=== PATIENT | male | born 1975 | race Caucasian/White ===

== ENCOUNTER 2022-04-02 00:45 | Emergency (ER) | payer MEDICAID ==
[~2022-04-02] VITALS: Ht 193 cm; Wt 145.4 kg
[2022-04-02 00:56] VITALS: BP 140/91
== END 2022-04-02 05:51 ==
LOC: ER 00:48
DX: Z02.89 Encounter for other administrative examinations (principal)
CPT/HCPCS: 99283

== ENCOUNTER 2023-01-11 16:17 | Emergency (ER) | payer MEDICAID ==
[~2023-01-11] VITALS: Ht 193 cm; Wt 127.4 kg
[2023-01-11 17:11] LABS: BILIRUBIN,URINE NEGATIVE (Neg); CLARITY,URINE SLIGHTLY CLOUDY (Clear); COLOR,URINE YELLOW (Yellow); GLUCOSE, URINE NEGATIVE (Neg); KETONES,URINE NEGATIVE (Neg); LEUKOCYTE ESTERASE ,URINE NEGATIVE (Neg); NITRITES, URINE NEGATIVE (Neg); OCCULT BLOOD,URINE NEGATIVE (Neg); PH,URINE 6.5 (4.8-8.0); PROTEIN,URINE TRACE mg/dl (Neg)
[2023-01-11 17:19] LABS: MUCUS STRANDS FEW /LPF (Neg); SQUAMOUS EPITHELIAL CELL,UR NONE SEEN /LPF (FEW); UA COLLECTION TYPE CLN CATCH MIDSTREAM
[2023-01-11 17:20] LABS: BACTERIA,URINE NONE SEEN /HPF (Neg); RBC,URINE 0-2 /HPF (0-2); SPERM MODERATE /HPF (NEGATIVE); WBC,URINE 0-4 /HPF (0-4)
[2023-01-11] MEDS ORDERED: FLO0.4C PO (17:25)
[2023-01-11] MEDS ORDERED: ibuprofen 200mg tablet PO ONE (17:55)
[2023-01-11] MEDS ORDERED: tamsulosin 0.4mg capsule PO ONE (17:55)
[2023-01-11] MEDS ORDERED: tamsulosin 0.4mg capsule PO SCH (17:55)
[2023-01-11 18:11] VITALS: BP 144/90; PULSE 84; TEMP 98.6; O2SAT 97
[2023-01-11 18:14] VITALS: RESP 16
--- NOTE | 2023-01-11 19:03 | NUR ---
I AGREE WITH THE ASSESSMENT OF Sonja HOWARD LVN.
== END 2023-01-11 18:16 | disposition home or self-care (01) ==
LOC: ER 16:18
DX: R30.9 Painful micturition, unspecified (principal); Z76.0 Encounter for issue of repeat prescription
CPT/HCPCS: 81001; 99283; A6449

== ENCOUNTER 2023-05-31 21:17 | Emergency (ER) | payer MEDICAID, OTHER ==
[~2023-05-31] VITALS: Ht 193 cm; Wt 150.0 kg
[2023-05-31 21:34] VITALS: TEMP 98.9
[2023-05-31] MEDS: morphine 4 MG/ML inj SYRINge IV ONE (21:40)
[2023-05-31] MEDS: normal saline 1000ml 1,000 ML IV ONE ×2 (21:43→21:53)
[2023-05-31] MEDS: ondansetron/PF 4mg/2ml inj IV ONE (21:48)
[2023-05-31] MEDS: ketorolac tromethamine 15mg/ml inj. IV ONE (21:52)
[2023-05-31] MEDS: HYDROmorphone 1 mg/ml syringe IV ONE (21:53)
[2023-05-31] MEDS: acetaminophen 1,000mg/100ml IV 100 ML IV SCH (22:19)
[2023-05-31 23:42] VITALS: BP 125/76; PULSE 102; O2SAT 92
[2023-06-01 00:41] LABS: MEAN CORPUSCULAR VOLUME 90.9 FL (78-98)
[2023-06-01 00:43] LABS: BASOPHILS # (AUTO) 0.1 X10'3 (0-0.2); BASOPHILS % (AUTO) 0.6 % (0-1); EOSINOPHILS # (AUTO) 0.1 X10'3 (0-0.9); EOSINOPHILS % (AUTO) 1.4 % (0-6); HEMATOCRIT 42.6 % (42.0-52.0); HEMOGLOBIN 14.6 g/dl (14.0-17.9); LYMPHOCYTES # (AUTO) 1.7 X10'3 (1.1-4.8); MEAN CORPUSCULAR HEMOGLOBIN 31.2 PG (27.0-31.0); MEAN CORPUSCULAR HGB CONC 34.3 g/dL (33.0-36.5); MEAN PLATELET VOLUME 7.5 FL (7.4-10.4); MONOCYTES # (AUTO) 0.5 X10'3 (0-0.9); MONOCYTES % (AUTO) 5.9 % (2-12); NEUTROPHILS # (AUTO) 6.2 X10'3 (1.8-7.7); NEUTROPHILS % (AUTO) 72.1 % (42-75); PLATELET COUNT 189 X10'3 (140-440); RED BLOOD COUNT 4.69 X10'6 (4.70-6.10); RED CELL DISTRIBUTION WIDTH 14.2 % (11.5-14.5); WHITE BLOOD COUNT 8.6 X10'3 (4.5-11.0)
[2023-06-01 00:52] LABS: BILIRUBIN,URINE NEGATIVE (Neg); CLARITY,URINE CLEAR (Clear); GLUCOSE, URINE NEGATIVE (Neg); KETONES,URINE NEGATIVE (Neg); LEUKOCYTE ESTERASE ,URINE NEGATIVE (Neg); NITRITES, URINE NEGATIVE (Neg); OCCULT BLOOD,URINE NEGATIVE (Neg); PH,URINE 5.5 (4.8-8.0); PROTEIN,URINE NEGATIVE (Neg); UROBILINOGEN,URINE 0.2 E.U/dL (0.2-1.0)
[2023-06-01 00:53] LABS: UA COLLECTION TYPE URINAL
[2023-06-01 00:54] VITALS: RESP 16
[2023-06-01 00:54] LABS: COLOR,URINE DARK YELLOW (Yellow)
[2023-06-01 01:01] LABS: ALANINE AMINOTRANSFERASE 34 U/L (12-78); ALBUMIN 3.4 G/DL (3.4-5.0); ALBUMIN/GLOBULIN RATIO 0.9 (1.1-1.5); ALKALINE PHOSPHATASE 79 IU/L (46-116); ANION GAP 8 (8-16); ASPARTATE AMINO TRANSFERASE 25 U/L (10-37); BILIRUBIN,TOTAL 0.7 MG/DL (0.1-1.0); BLOOD UREA NITROGEN 13 MG/DL (7-18); BUN/CREATININE RATIO 13.1 (10.0-20.0); CALCIUM 7.9 MG/DL (8.5-10.1); CHLORIDE 109 MMOL/L (99-107); CREATININE 0.99 MG/DL (0.60-1.10); GLUCOSE 118 MG/DL (70-104); LIPASE 32 U/L (16-77); POTASSIUM 3.7 MMOL/L (3.5-5.1); SODIUM 142 MMOL/L (135-145); TOTAL CARBON DIOXIDE 25.5 MMOL/L (24-32); TOTAL PROTEIN 7.1 G/DL (6.4-8.2); eCRCL 114 ML/MIN; eGFR 81 ML/MIN
== END 2023-06-01 01:44 | disposition home or self-care (01) ==
LOC: ER 21:18
DX: N20.0 Calculus of kidney (principal); Z88.8 Allergy status to other drugs, medicaments and biological substances
CPT/HCPCS: 36415; 74176; 80053; 81003; 83690; 85025; 96361; 96374; 96375; 99285; J1885; J2405; J7030

== ENCOUNTER 2023-12-26 21:54 | Emergency (ER) | payer MEDICAID ==
[~2023-12-26] VITALS: Ht 193 cm; Wt 131.1 kg
[2023-12-26 22:28] VITALS: BP 119/53; PULSE 106; RESP 24; TEMP 99.3; O2SAT 99
[2023-12-26 22:58] LABS: BASOPHILS # (AUTO) 0.1 X10'3 (0-0.2); EOSINOPHILS % (AUTO) 0 % (0-6); LYMPHOCYTES # (AUTO) 0.7 X10'3 (1.1-4.8); LYMPHOCYTES % (AUTO) 4.2 % (21-51); MEAN PLATELET VOLUME 7.5 FL (7.4-10.4); MONOCYTES # (AUTO) 0.7 X10'3 (0-0.9)
[2023-12-26 23:00] LABS: BASOPHILS % (AUTO) 0.3 % (0-1); HEMATOCRIT 45.4 % (42.0-52.0); MEAN CORPUSCULAR HEMOGLOBIN 32.4 PG (27.0-31.0); MEAN CORPUSCULAR HGB CONC 35.3 g/dL (33.0-36.5); MEAN CORPUSCULAR VOLUME 91.9 FL (78-98); MONOCYTES % (AUTO) 4.1 % (2-12); NEUTROPHILS # (AUTO) 15.2 X10'3 (1.8-7.7); NEUTROPHILS % (AUTO) 91.4 % (42-75); PLATELET COUNT 258 X10'3 (140-440); RED BLOOD COUNT 4.94 X10'6 (4.70-6.10); RED CELL DISTRIBUTION WIDTH 14.9 % (11.5-14.5); WHITE BLOOD COUNT 16.6 X10'3 (4.5-11.0)
[2023-12-26 23:10] LABS: APTT 27 SECONDS (22-32); D-DIMER 3.31 MG/L FEU (0-0.50); INR 1.1 INR
[2023-12-26 23:11] LABS: ALANINE AMINOTRANSFERASE 33 U/L (12-78); ALBUMIN 3.5 G/DL (3.4-5.0); ALBUMIN/GLOBULIN RATIO 0.9 (1.1-1.5); ALKALINE PHOSPHATASE 82 IU/L (46-116); ANION GAP 7 (8-16); ASPARTATE AMINO TRANSFERASE 35 U/L (10-37); BILIRUBIN,TOTAL 1.2 MG/DL (0.1-1.0); BLOOD UREA NITROGEN 16 MG/DL (7-18); BUN/CREATININE RATIO 9.4 (10.0-20.0); CALCIUM 8.4 MG/DL (8.5-10.1); CHLORIDE 97 MMOL/L (99-107); CREATININE 1.71 MG/DL (0.60-1.10); GLUCOSE 98 MG/DL (70-104); POTASSIUM 3.6 MMOL/L (3.5-5.1); SODIUM 133 MMOL/L (135-145); TOTAL CARBON DIOXIDE 29.4 MMOL/L (24-32); TOTAL PROTEIN 7.4 G/DL (6.4-8.2); eCRCL 66 ML/MIN; eGFR 43 ML/MIN
[2023-12-26 23:18] LABS: LIPASE 25 U/L (16-77); PRO BRAIN NATRIURETIC PEPTIDE 326 PG/ML (0-125)
== END 2023-12-27 02:11 | disposition left against medical advice (07) ==
LOC: ER 21:54
DX: K92.1 Melena (principal); R10.9 Unspecified abdominal pain; R04.2 Hemoptysis; R42 Dizziness and giddiness; Z53.21 Procedure and treatment not carried out due to patient leaving prior to being seen by health care provider
CPT/HCPCS: 36415; 74176; 80053; 83690; 83880; 84484; 85025; 85379; 85610; 85730; 93005

== ENCOUNTER 2024-03-26 10:41 | Emergency (ER) | payer MEDICAID ==
[~2024-03-26] VITALS: Ht 193 cm; Wt 140.9 kg
[2024-03-26 10:52] VITALS: TEMP 98.4
[2024-03-26 11:41] LABS: BASOPHILS % (AUTO) 0.9 % (0-1); EOSINOPHILS # (AUTO) 0.1 X10'3 (0-0.9); EOSINOPHILS % (AUTO) 1.5 % (0-6); HEMATOCRIT 45.4 % (42.0-52.0); HEMOGLOBIN 15.5 g/dl (14.0-17.9); LYMPHOCYTES # (AUTO) 1.4 X10'3 (1.1-4.8); LYMPHOCYTES % (AUTO) 27.9 % (21-51); MEAN CORPUSCULAR HEMOGLOBIN 31.9 PG (27.0-31.0); MEAN CORPUSCULAR HGB CONC 34.2 g/dL (33.0-36.5); MEAN CORPUSCULAR VOLUME 93.4 FL (78-98); MEAN PLATELET VOLUME 7.6 FL (7.4-10.4); MONOCYTES # (AUTO) 0.9 X10'3 (0-0.9); MONOCYTES % (AUTO) 17.5 % (2-12); NEUTROPHILS # (AUTO) 2.7 X10'3 (1.8-7.7); NEUTROPHILS % (AUTO) 52.2 % (42-75); PLATELET COUNT 241 X10'3 (140-440); RED BLOOD COUNT 4.86 X10'6 (4.70-6.10); WHITE BLOOD COUNT 5.1 X10'3 (4.5-11.0)
[2024-03-26] MEDS: ketorolac trometh 15mg/ml vial 15 MG/ML ML IM ONE (11:45)
[2024-03-26 12:03] LABS: PLATELET ESTIMATE NORMAL; TOTAL CELLS COUNTED 100
[2024-03-26 12:04] LABS: ALANINE AMINOTRANSFERASE 60 U/L (12-78); ALBUMIN 3.8 G/DL (3.4-5.0); ALBUMIN/GLOBULIN RATIO 0.9 (1.1-1.5); ALKALINE PHOSPHATASE 123 IU/L (46-116); ANION GAP 7 (8-16); ASPARTATE AMINO TRANSFERASE 35 U/L (10-37); BILIRUBIN,TOTAL 1.3 MG/DL (0.1-1.0); BLOOD UREA NITROGEN 12 MG/DL (7-18); BUN/CREATININE RATIO 11.3 (10.0-20.0); CALCIUM 8.9 MG/DL (8.5-10.1); CHLORIDE 104 MMOL/L (99-107); CREATININE 1.06 MG/DL (0.60-1.10); GLUCOSE 91 MG/DL (70-104); POTASSIUM 3.7 MMOL/L (3.5-5.1); SODIUM 140 MMOL/L (135-145); TOTAL CARBON DIOXIDE 29.2 MMOL/L (24-32); eCRCL 106 ML/MIN; eGFR 75 ML/MIN
[2024-03-26 12:14] LABS: PRO BRAIN NATRIURETIC PEPTIDE 54 PG/ML (0-125)
[2024-03-26 12:26] VITALS: BP 126/84; PULSE 97; RESP 20; O2SAT 98
== END 2024-03-26 12:27 | disposition home or self-care (01) ==
LOC: ER 10:42
DX: Z00.00 Encounter for general adult medical examination without abnormal findings (principal); M54.9 Dorsalgia, unspecified; R07.9 Chest pain, unspecified; Z87.442 Personal history of urinary calculi; Z88.5 Allergy status to narcotic agent
CPT/HCPCS: 71045; 72100; 80053; 83880; 84484; 85007; 85025; 93005; 96372; 99285; J1885